=== PATIENT | female | born 1990 | race Caucasian/White ===

== ENCOUNTER 2017-04-15 15:40 | Emergency (ER) | payer OTHER ==
[~2017-04-15] VITALS: Ht 167.6 cm; Wt 117.3 kg
[2017-04-15 15:42] VITALS: BP 136/90; PULSE 77; RESP 20; O2SAT 100
[2017-04-15 16:30] LABS: APPEARANCE,URINE CLEAR (CLEAR,HAZY); COLOR,URINE YELLOW (YELLOW)
[2017-04-15 16:31] LABS: OCCULT BLOOD,URINE NEGATIVE (NEGATIVE); UROBILINOGEN,URINE NORMAL (NORMAL)
--- NOTE | 2017-04-15 17:06 | ED.REPORT ---
HPI-General Illness Date of Service Apr 15, 2017 ED Provider: Dr. Hardik Causey The patient is a 27 year old female who presents to the ED c/o 02/11, left sided , sharp, shooting, abdominal pain radiating around towards mid-abdomen onset yesterday. She had a fall on Thursday and has multiple, resultant abdominal bruises. The pt was chasing her nieces down a hill and fell face down in the grass. Associated symptoms include vomiting 2x today. She denies hematochezia, fever, nausea, diarrhea, chest pain, shortness of breath, bloody/tarry stool, dysuria, hematuria or urinary frequency. Nursing Notes Stated Complaint: STOMACH PAIN AFTER FALL Chief Complaint: Female Abdominal Pain Nursing Notes Reviewed: Yes Allergies: Coded Allergies: aspirin (Verified Allergy, Severe, Hives, 04/15/17) ibuprofen (Verified Allergy, Severe, Hives, 04/15/17) Penicillins (Verified Allergy, Intermediate, Nausea,Vomiting, 04/15/17) polyethylene glycol 3350 (Verified Allergy, Unknown, vomiting, 04/15/17) General Time Seen by MD: 17:05 Chief Complaint Abdominal pain Hx Obtained From: Patient Arrived By: Walk-in Sudden in Onset?: Yes Onset Occurred: Yesterday Symptom Duration: Since onset Caused by: Fall on ground Location: : Abdomen Quality: Painful Radiation: : Abdomen Severity: Current: Pain level 5 out of 10 Recent Healthcare: No recent doctor visit, No recent hospitalization Similar Sx Previous: No Past Medical History Past Medical History IBS Physical induced asthma Epilepsy Back pain Past Surgical History Knee surgery Reports: Tonsillectomy Smoking History Never Smoker Social History Alcohol Use: Denies alcohol use Drug Use: Denies drug use Other Social History: Local resident Ambulatory Status Independent Review of Systems Full Review of Systems Constitutional: Denies: Fever Respiratory: Denies: Shortness of breath Cardiovascular: Denies: Chest pain GI: Reports: Abdominal pain, Denies: Nausea, Vomiting Female: Reports: Flank pain, Denies: Dysuria, Hematuria, Incontinence, Urinary frequency, Urinary urgency Complete sys rev & neg: except as marked. Physical Exam Nursing note and vitals reviewed. Constitutional: Well-developed, well-nourished. Not diaphoretic. Head: Normocephalic and atraumatic. Mouth/Throat: Oropharynx is clear and moist. No oropharyngeal exudate. Eyes: EOM are normal. Pupils are equal, round, and reactive to light. Neck: Supple, no tracheal deviation. Cardiovascular: Normal rate, regular rhythm. Equal and intact distal pulses throughout. Pulmonary/Chest: Effort normal and breath sounds normal. No respiratory distress. No chest wall tenderness to palpation. No ecchymosis to chest. Abdominal: Soft. No distension. Very mild tenderness to palpation to left abdomen and left flank. No rebound, or guarding. Mild ecchymosis to the left side of abdomen and left flank Musculoskeletal: Range of motion grossly intact, moving all extremities;. No edema. Ecchymosis to left large toe with no significant tenderness Neurological: AOx3. Grossly nonfocal exam. Strength and sensation intact and equal to bilateral upper and lower extremities. Skin: Warm and dry, no rashes or pallor appreciated. Psychiatric: Appropriate mood and affect. Behavior appears normal. Vital Signs Vital Signs Date Time Temp Pulse Resp B/P Pulse Ox O2 Delivery O2 Flow Rate FiO2 04/15/17 19:09 73 16 04/15/17 15:42 36.8 77 20 136/90 100 Room Air Initial VS: Reviewed Interpretation & Diagnostics Lab Results Interpretation Test 04/15/17 16:10 Urine Color Yellow (YELLOW) Urine Appearance Clear (CLEAR,HAZY) Urine pH 8.0 (5.0-8.0) Urine Specific [place] 1.015 (1.003-1.035) Urine Protein Negativemg/dL (NEG,TRACE) Urine Glucose (UA) Negativemg/dL (NEGATIVE) Urine Ketones Negativemg/dL (NEGATIVE) Urine Occult Blood Negative (NEGATIVE) Urine Nitrite Negative (NEGATIVE) Urine Bilirubin Negative (NEGATIVE) Urine Urobilinogen Normalmg/dL (NORMAL) Urine Leukocyte Esterase Negative (NEGATIVE) Urine RBC 0-2/hpf (0-2) Urine WBC 0-5/hpf (0-5) Urine Epithelial Cells Moderate/hpf (NONE-MOD) Urine Crystals None seen (NONE SEEN) Urine Bacteria Few/hpf (NONE-FEW) Urine Hyaline Casts None/lpf (NONE) Urine Granular Casts None seen (NONE SEEN) Urine Waxy Casts None seen (NONE SEEN) Urine Red Blood Cell Casts None seen (NONE SEEN) Urine White Blood Cell Casts None seen (NONE SEEN) Urine Mucus None seen (None Seen) Urine Trichomonas None seen (NONE SEEN) Urine Yeast None (NONE SEEN) Urinalysis Comment None Urine Culture Reflexed Not indicated Lab Results Interpretation: Urine dip negative Re-Eval/Medical Decision Med Decision/Clinical Course In summary, 27-year-old female presenting to the ED for evaluation of abdominal pain over the past day in the setting of a fall 3 days ago. She had no pain in the interim. Her examination is reassuring, with only very minimal tenderness to palpation, no peritoneal signs. Her vital signs are grossly within normal limits. I discussed doing a CT scan and labs with the patient and that we could not completely rule out any serious etiology without doing these, however that it would also be reasonable to have her follow-up tomorrow and return if symptoms worsen. Patient opted for the latter. This seems reasonable. Very careful return precautions were discussed at length - patient agreeable to the plan as stated, no further questions. Time of Eval: 18:46 Re-Evaluation/Progress Note: Pt checked. She does not want a CT scan. There does not appear to be any emergent causes for her symptoms. Plan for discharge. Pt understands and agrees with plan. F/U and RTER warnings given. All questions addressed. Counseled Regarding: Diagnosis, Lab results, Need for follow-up, When/why to return to ED Discharge & Departure Primary Impression: Left sided abdominal pain Disposition: Home Discharge Condition All VS Reviewed: Yes Condition: Stable Patient Instructions: Acute Abdominal Pain (ED) Additional Instructions: Thank you for entrusting us with your care today. As we discussed, I do not believe there are any emergent causes for your symptoms based on your exam; however, as we talked about, the only way to ensure there is no acute issue today would be to get a CT scan and lab work. You would prefer to go home without these tests despite the risk of missing something more serious. I think this is reasonable. Return to the ED immediately if you develop worsening pain, vomiting, or if there's anything else of concern to you. Follow up with your regular doctor tomorrow. I hope you feel better soon. Referrals: Sherri Lackey (PCP) [place] Attestation Portion of this note were transcribed by Leidy Morataya. I, Dr. Causey, personally performed the history, physical exam, and medical decision-making: I reviewed and confirmed the accuracy for the information in the transcribed note. Signed by: antoinette Dillon, 04/15/17 2100 copies to: Sherri Lackey William B MD Apr 15, 2017 17:05 Leidy Morataya Apr 15, 2017 18:37 Leidy Morataya Apr 15, 2017 18:37
[2017-04-15 19:09] VITALS: PULSE 73; RESP 16
== END 2017-04-15 19:09 | disposition home or self-care (01) ==
LOC: SED 15:40
DX: S30.1XXA Contusion of abdominal wall, initial encounter (principal); W18.39XA Other fall on same level, initial encounter; Y93.89 Activity, other specified; Y92.828 Other wilderness area as the place of occurrence of the external cause; Y99.8 Other external cause status; R11.10 Vomiting, unspecified; J45.998 Other asthma; G40.909 Epilepsy, unspecified, not intractable, without status epilepticus; Z88.0 Allergy status to penicillin; Z88.8 Allergy status to other drugs, medicaments and biological substances